=== PATIENT | male | born 1980 | race American Indian/Alaskan Native ===

== ENCOUNTER 2022-03-19 13:17 | Emergency (ER) | payer SELFPAY ==
--- NOTE | 2022-03-19 18:45 | Cat Scan Report ---
CT HEAD WITHOUT CONTRAST INDICATION / CLINICAL INFORMATION: head injury. TECHNIQUE: All CT scans at this location are performed using CT dose reduction for ALARA by means of automated e xposure control. COMPARISON: None available. FINDINGS: HEMORRHAGE: No evidence of intracranial hemorrhage or extra-axial fluid collection. EXTRA-AXIAL SPACES: Cortical sulci, sylvian fissures and basilar cisterns have an unremarkable appear ance. VENTRICULAR SYSTEM: The third and lateral ventricles are of normal size and configuration. CEREBRAL PARENCHYMA: No areas of abnormal brain parenchymal attenuation are identified. There is no i ndication of recent infarction. MIDLINE SHIFT OR HERNIATION: There is no mass effect. CEREBELLUM / BRAINSTEM: Brainstem and cerebellum have an unremarkable appearance. MIDLINE STRUCTURES:No abnormalities of the pituitary gland or pineal region are identified. INTRACRANIAL VESSELS:No abnormalities are identified on this noncontrast head CT. ORBITS: visualized portions of the orbits have an unremarkable appearance. SOFT TISSUES of HEAD: No significant abnormality. CALVARIUM: Evaluation of bone windows reveals no abnormalities. PARANASAL SINUSES / MASTOID AIR CELLS: Visualized portions of the paranasal sinuses are free from inf lammatory mucosal disease. Mastoid air cells are normally pneumatized. IMPRESSION: 1. Normal head CT without contrast. Signer Name: Sterling Wilson MD Signed: 03/19/2022 6:40 PM Workstation Name: [id number]
--- NOTE | 2022-03-19 22:53 | Emergency Department Report ---
ED Head Trauma HPI - General Chief complaint: Head Injury Stated complaint: HEAD INJURY/ROSA Time Seen by Provider: 03/19/22 22:28 Source: patient Mode of arrival: Ambulatory Limitations: No Limitations - History of Present Illness Initial comments: 41-year-old male was at work around 1230 this afternoon when a kitchen pot fell on his head strike him in the front right region resulting in a loss of consciousness for an unknown amount of time and spontaneous waking up. States that currently only has some dull pain to the injury area reports no neck pain, no dizziness, no blurred vision, no amnesia. No fever, chills, sweats. No nausea, no vomiting. No issues with his gait or coordination Complaint: head injury Location: frontal Loss of Consciousness: yes Place: work Radiation: none Quality: dull Consistency: constant - Related Data Allergies/Adverse reactions: Allergies Allergy/AdvReac Type Severity Reaction Status Date / Time No Known Allergies Allergy Unverified 03/19/22 13:54 ED Review of Systems ROS: Stated complaint: HEAD INJURY/ROSA Other details as noted in HPI Comment: All other systems reviewed and negative ED Past Medical Hx - Past Medical History Previous Medical History?: No - Surgical History Past Surgical History?: No ED Physical Exam - General Limitations: No Limitations General appearance: alert, in no apparent distress - Head Head exam: Present: atraumatic, normocephalic - Eye Eye exam: Present: normal appearance, PERRL, EOMI - ENT ENT exam: Present: mucous membranes moist - Neck Neck exam: Present: normal inspection - Respiratory Respiratory exam: Present: normal lung sounds bilaterally. Absent: respiratory distress - Cardiovascular Cardiovascular Exam: Present: regular rate, normal rhythm. Absent: systolic murmur, diastolic murmur, rubs, gallop - GI/Abdominal GI/Abdominal exam: Present: soft, normal bowel sounds - Rectal Rectal exam: Present: deferred - Extremities Exam Extremities exam: Present: normal inspection - Back Exam Back exam: Present: normal inspection - Neurological Exam Neurological exam: Present: alert, oriented X3 - Psychiatric Psychiatric exam: Present: normal affect, normal mood - Skin Skin exam: Present: warm, dry, intact, normal color. Absent: rash ED Course Vital Signs 03/19/22 03/19/22 13:17 15:12 Temperature 98.7 F Pulse Rate 80 80 Respiratory 18 18 Rate Blood Pressure 142/90 115/69 [Right] O2 Sat by Pulse 100 99 Oximetry - Radiology Data Radiology results: report reviewed [facility] [address] [place] [address] Cat Scan Report Signed Patient: TUSHAR VERGARA MR#: [id number] : 1980 Acct:[id number] Age/Sex: 41 / M ADM Date: 03/19/22 Loc: ED Attending Dr: Ordering Physician: TORSTEN AUSTIN MD Date of Service: 03/19/22 Procedure(s): CT head/brain wo con Accession Number(s): [id number] cc: TORSTEN AUSTIN MD CT HEAD WITHOUT CONTRAST INDICATION / CLINICAL INFORMATION: head injury. TECHNIQUE: All CT scans at this location are performed using CT dose reduction for ALARA by means of automated exposure control. COMPARISON: None available. FINDINGS: HEMORRHAGE: No evidence of intracranial hemorrhage or extra-axial fluid collection. EXTRA-AXIAL SPACES: Cortical sulci, sylvian fissures and basilar cisterns have an unremarkable appearance. VENTRICULAR SYSTEM: The third and lateral ventricles are of normal size and configuration. CEREBRAL PARENCHYMA: No areas of abnormal brain parenchymal attenuation are identified. There is no indication of recent infarction. MIDLINE SHIFT OR HERNIATION: There is no mass effect. CEREBELLUM / BRAINSTEM: Brainstem and cerebellum have an unremarkable appearance. MIDLINE STRUCTURES:No abnormalities of the pituitary gland or pineal region are identified. INTRACRANIAL VESSELS:No abnormalities are identified on this noncontrast head CT. ORBITS: visualized portions of the orbits have an unremarkable appearance. SOFT TISSUES of HEAD: No significant abnormality. CALVARIUM: Evaluation of bone windows reveals no abnormalities. PARANASAL SINUSES / MASTOID AIR CELLS: Visualized portions of the paranasal sinuses are free from inflammatory mucosal disease. Mastoid air cells are normally pneumatized. IMPRESSION: 1. Normal head CT without contrast. Signer Name: Sterling Wilson MD Signed: 03/19/2022 6:40 PM Workstation Name: [id number] Transcribed By: Dictated By: Sterling Wilson MD Electronically Authenticated By: Sterling Wilson MD Signed Date/Time: 03/19/22 1840 DD/ 36 TD/TT: - Medical Decision Making 39-year-old male status post acute impact to the head with loss of consciousness current Jose coma scale 15. Does have large occiput to hematoma. No skull crepitance or stepoff. No Chapman sign. No raccoon eyes. No fluid from nose or ears. No nasal septal hematoma. No open wounds. No cervical spine tenderness. CT scan performed to evaluate for any intracranial injury or skull fracture. Patient is protecting airway and otherwise has an unremarkable secondary trauma survey. Given instructions regarding supportive care including pain meds as needed, return precautions, follow-up with primary physician. Critical care attestation.: If time is entered above; I have spent that time in minutes in the direct care of this critically ill patient, excluding procedure time. ED Disposition Clinical Impression: Head injury due to trauma, Normal CT scan of head Disposition: HOME / SELF CARE / HOMELESS Is pt being admited?: No Does the pt Need Aspirin: No Condition: Stable Instructions: How to Use Cold Therapy Referrals: ZAID COLEMAN MD [Staff Physician] - 3-5 Days
[2022-03-19 23:20] VITALS: BP 139/89
== END 2022-03-19 23:44 | disposition home or self-care (01) ==
LOC: ED 13:17
DX: S09.90XA Unspecified injury of head, initial encounter (principal); W20.8XXA Other cause of strike by thrown, projected or falling object, initial encounter; Y93.89 Activity, other specified; Y92.89 Other specified places as the place of occurrence of the external cause; Y99.8 Other external cause status
CPT/HCPCS: 70450; 99283